=== PATIENT | male | born 1940 | race Caucasian/White ===

== ENCOUNTER 2019-03-01 11:18 | Emergency (ER) | payer OTHER ==
[~2019-03-01] VITALS: Ht 172.7 cm; Wt 95.3 kg
[2019-03-01 11:24] VITALS: Ht 172.7 cm; Wt 95.3 kg
[2019-03-01 13:42] VITALS: BP 138/71
== END 2019-03-01 13:42 | disposition home or self-care (01) ==
LOC: ED 11:18
DX: J40 Bronchitis, not specified as acute or chronic (principal); I10 Essential (primary) hypertension; Z98.890 Other specified postprocedural states

== ENCOUNTER 2019-03-04 19:42 | Inpatient (IN) | payer OTHER ==
[~2019-03-04] VITALS: Ht 180.3 cm; Wt 98.0 kg
--- NOTE | 2019-03-04 19:49 | NUR ---
NO ANS IN LOBBY
--- NOTE | 2019-03-04 20:21 | NUR ---
PATIENT PRESENTED BACK TO THE ED WITH WORSENING COUGH. PATIENT WAS HERE ON 03/01/19 AND WAS DX WITH BRONCHITUS. PATIENT STATES HE IS HAVING A HARD TIME SLEEPING BECAUSE HE KEEPS COUGHING UP YELLOW PHLEGM. CRACKLES NOTED IN UPPER AND LOWER LOBES BILATERALLY, PLACED PATIENT ON ALL MONITORS PER MD ORDERS. WILL CONTINUE TO MONITOR.
--- NOTE | 2019-03-04 20:49 | NUR ---
ADVISED PATIENT I NEEDED URINE SAMPLE. PATIENT VERBALIZED UNDERSTANDING.
[2019-03-04 20:57] LABS: BASOPHIL % 0.7 % (0-2); PLATELET COUNT 220 x10^3mcL (130-400)
[2019-03-04 21:11] LABS: ALBUMIN 3.5 g/dL (3.4-5.0); ALKALINE PHOSPHATASE 79 U/L (46-116); ALT/SGPT 24 U/L (16-63); AST/SGOT 19 U/L (15-37); BILIRUBIN TOTAL 0.37 mg/dL (0.20-1.00); CHLORIDE SERUM 105 mmol/L (98-107); CREATININE SERUM 1.3 mg/dL (0.7-1.3); SODIUM SERUM 140 mmol/L (136-145); TOTAL PROTEIN, SERUM 7.7 g/dL (6.4-8.2)
[2019-03-04 21:19] LABS: C REACTIVE PROTEIN 9.5 mg/dL (<=0.9); GLUCOSE SERUM 89 mg/dL (74-106)
[2019-03-04 21:23] LABS: RED CELL DISTRIBUTION WIDTH 15.5 % (11.5-14.5)
--- NOTE | 2019-03-04 21:32 | NUR ---
INFLUENZA A/B SENT TO LAB/
[2019-03-04 21:35] LABS: FREE T4 1.04 ng/dL (0.76-1.46); FREE THYROXINE INDEX 2.6 ug/dL (1.4-4.5); T4(THYROXINE) 7.3 ug/dL (4.7-13.3)
[2019-03-04 21:46] LABS: UA SPECIFIC GRAVITY 1.025 (1.005-1.035); microscopic required? YES; urine erythrocyte NEGATIVE (NEGATIVE)
[2019-03-04 21:50] LABS: T3 TOTAL 1.25 ng/mL
[2019-03-04 22:05] LABS: ERYTHROCYTE SED RATE 28 mm/hr (0-20)
--- NOTE | 2019-03-04 22:56 | NUR ---
REPORT GIVEN TO KIRIT MONGE- TELE FOR FURTHER CARE OF PATIENT. PATIENT BEING TRANSFERRED TO 218A TELE.
--- NOTE | 2019-03-04 23:12 | NUR ---
RECEIVED PT FROM ED VIA [facility], CAME IN DUE TO SOB AND COUGH. AAOX4. DENIES HEADACHE/DIZZINESS. NO SOB NOTED, LUNG SOUNDS CTA. O2 SAT=95% ON 2LPM/NC. W/ PRODUCTIVE COUGH, ABLE TO EXPECTORATE YELLOW PHLEGM. DENIES CHEST PAIN/PRESSURE, SR ON THE MONITOR. DENIES ABDOMINAL DISCOMFORT. BOWEL SOUNDS ACTIVE. IV SITE PATENT AND INTACT. SIDE RAILS UPX2. ENDORSED TO PRIMARY NURSE SALEEM FOR CONTINUITY OF CARE
[2019-03-04 23:24] VITALS: BP 164/88
[2019-03-04 23:29] VITALS: Ht 180.3 cm; Wt 98.0 kg
--- NOTE | 2019-03-05 00:01 | NUR ---
RECIEVED PT FROM [facility] B[facility] IN NO ACUTE DISTRESS. AOX4. TELE #21, SR. BREATHING EVEN AND UNLABORED ON NC @ 2L. IV TO LAC, PATENT AND INFUSING. ORIENTED TO ROOM. BED IN LOWEST POSITION, 2 SIDE RAILS UP, CALL LIGHT IN REACH. INSTRUCTED TO CALL FOR ASSISTANCE.
[2019-03-05 01:40] VITALS: BP 164/88
[2019-03-05 05:26] VITALS: BP 105/60
--- NOTE | 2019-03-05 05:45 | NUR ---
NO ACUTE CHANGES. WILL ENDORSE TO ONCOMING RN.
--- NOTE | 2019-03-05 08:00 | NUR ---
RECEIVED PATIENT ALERT AND ORIENTED TIMES FOUR. PATIENT DENIES SOB AND THE LUNGS SOUND CLEAR AND ABDOMEN IS DISTENDED AND SOFT AND PATIENT HAS BEEN ON BEDREST AND TOELRATED WELL. HE ATE WELL THIS AM. PATIENT VITALS AT THIS TIME AT 97.5, 77, 18, 105/60, 95%. NOTED LABS ARE 10.3/30, AND BUN AT 33.0, GLUCOSE AT 175, AND THE LAST BLODO SUGAR AT 143. PATIENT HAS DIMINSIHED BREATH SOUNDS PATENI NANDA NO EDEMA AND PUSLES PALPABLE TO THE EXTREMTIES. VENKATESHT HAS COMPLAINTS OF DIZZINESS AND OFFERED AND GAVE THE ANTIVERT. WILL CONTINUE TO MONITOR INDICATED.
[2019-03-05 09:00] VITALS: BP 143/76
--- NOTE | 2019-03-05 10:00 | NUR ---
PATIENT HAD LOW PULSE ACCORDING TO THE RT WHO WAS TAKING THE PULSE OX AND NTOED. CHECKED THE PATIENT WHO IS ASYMTOMATIC AT THIS TIME AND THE APICAL AT 68 AT THIS TIME. PATIENT HAS BEEN 72 ON THE MONITOR. PATIENT HAS BEEN WITHOUT SHORTNESS OF BREATH OR PAIN AT THIS TIME. WILL CONTINUE TO MONTIOR INDICATED.
--- NOTE | 2019-03-05 11:30 | NUR ---
RECEIVED PATIENT ALERT AND ORIENTED TIMES FOUR. PATIENT DENIES SOB AND THE LUNGS SOUND CLEAR AND ABDOMEN IS DISTENDED AND SOFT AND PATIENT HAS BEEN ON BEDREST AND TOELRATED WELL. HE ATE WELL THIS AM. PATIENT VITALS AT THIS TIME AT 97.5, 77, 18, 105/60, 95%. NOTED LABS ARE 10.3/30, AND BUN AT 33.0, GLUCOSE AT 175, AND THE LAST BLODO SUGAR AT 143. PATIENT HAS DIMINSIHED BREATH SOUNDS PATENI NANDA NO EDEMA AND PUSLES PALPABLE TO THE EXTREMTIES. PATIENT IS RESTING QUIETLY AT THIS TIME. NO COUGH AT THIS ITME BUT HAD BEEN REPORTED THAT THE HAS YELLOW SPUTUM,AND WAS ABLE TO EXPECTORATE. =
[2019-03-05 13:40] VITALS: BP 146/75
[2019-03-05 17:30] VITALS: BP 153/69
--- NOTE | 2019-03-05 19:35 | NUR ---
RECIEVED PT IN BED WITH AT BEDSIDE, NO ACUTE RESPIRATORY DISTRESS AT THIS TIME, PT DENIES CHEST PAIN AT THIS TIME, PERIPHERAL PULSES PALPABLE, TRACE EDEMA PRESENT TO THE BLLE, LUNG SOUNDS SLIGHTLY SIMINISHED, RESPIRATIONS EVEN AND UNLABORED, BOWEL SOUNDS ACTIVE X4, ABD LARGE, ROUND, DENIES ABD PAIN AT THIS TIME, PT VOIDS FREELY, IV TO LAC, CDI, NO SIGNS OF REDNESS OR SWELLING, SAFETY PRECAUTIONS IN PLACE WILL CONTINUE TO MONITOR.
[2019-03-05 21:45] VITALS: BP 150/80
--- NOTE | 2019-03-06 00:10 | NUR ---
PT REQUESTED FOR SLEEPING PILL. AMBIEN 5 MG PO GIVEN.
--- NOTE | 2019-03-06 01:00 | NUR ---
RECEIVED PT FROM SIERRA RN, PT RESTING IN BED, NO ACUTE DISTRESS NOTED. RESP EVEN AND UNLABORED, PT ON RA. ALL COMFORT AND SAFETY MEASURES PROVIDED FOR, CALL LIGHT WITHIN REACH, BED IN LOWEST POSITION, WILL CONTINUE TO MONITOR.
--- NOTE | 2019-03-06 05:15 | NUR ---
PT RESTED IN INTERVALS DURING SHIFT, NO ACUTE CHANGES OCCURRING OVERNIGHT. PT C/O COUGH, WILL MEDICATE PER ORDER. IV SITE REMAINS PATENT TO LAC, NO REDNESS, SWELLING OR PAIN NOTED. ALL COMFORT AND SAFETY MEASURES PROVIDED FOR, CALL LIGHT WITHIN REACH, BED IN LOWEST POSITION, WILL CONTINUE TO MONITOR.
[2019-03-06 05:40] VITALS: BP 141/89
[2019-03-06 07:00] LABS: BASOPHIL % 0.5 % (0-2); PLATELET COUNT 205 x10^3mcL (130-400)
[2019-03-06 07:13] LABS: CALCIUM 9.1 mg/dL (8.5-10.1); CARBON DIOXIDE 26.7 mmol/L (21-32); CHLORIDE SERUM 106 mmol/L (98-107); GLUCOSE SERUM 110 mg/dL (74-106); POTASSIUM SERUM 3.6 mmol/L (3.5-5.1); SODIUM SERUM 141 mmol/L (136-145)
--- NOTE | 2019-03-06 07:15 | NUR ---
RECEIVED PT. IN BED A/A/O X3. NO SOB, NO N/V NOTED. PT. DENIES ANY PAIN AT THIS TIME. IV H/L NOTED TO L AC. BED IN LOW POS., CALL LIGHT WITHIN REACH. SIDE RAILS UP X3.
--- NOTE | 2019-03-06 09:50 | NUR ---
PT. IS BEING SEEN BY DR. DUTTON AT THIS TIME.
--- NOTE | 2019-03-06 10:00 | NUR ---
NEW IV SITE RESTARTED AT R AC WITH GAUGE #20 DUE TO INFILTRATION OF OLD IV SITE.
[2019-03-06 10:01] VITALS: BP 149/80
--- NOTE | 2019-03-06 12:30 | NUR ---
PT. IS BEING TAKEN TO CT SCAN DEPT.
--- NOTE | 2019-03-06 12:54 | NUR ---
PT. RETURNED TO ROOM FROM CT SCAN DEPT.
[2019-03-06 13:00] VITALS: BP 167/96
--- NOTE | 2019-03-06 15:33 | NUR ---
CALLED AND NOTIFIED DR. DUTTON ABOUT RESULTS OF [facility]. DR. DUTTON SAID HE WILL DISCHARGE THE PT. TODAY IF DR. LEVY SAYS OK FOR PT. TO GO HOME.
--- NOTE | 2019-03-06 17:09 | NUR ---
REMAINS IN STABLE CONDITION AT THIS TIME. WILL CONTINUE TO MONITOR.
[2019-03-06 17:56] VITALS: BP 145/82
--- NOTE | 2019-03-06 18:00 | NUR ---
PT. IS BEING SEEN BY DR. LEVY. DR. LEVY SAID OK TO DISCHARGE PT. HOME TONIGHT.
--- NOTE | 2019-03-06 18:30 | NUR ---
CALLED AND SPOKE WITH DR. DUTTON REGARDING " OK TO DISCHARGE PT. HOME TONIGHT" PER DR. LEVY. ORDER TO DISCHARGE PT. HOME RECEIVED FROM DR. DUTTON.
--- NOTE | 2019-03-06 19:10 | NUR ---
ENDORSED PT.'S CARE TO KEELEY CARMICHAEL RN. KEELEY MADE AWARE THAT DISCHARGE INSTRUCTIONS NEED TO BE GIVEN TO PT. PRIOR TO DISCHARGE WHEN HIS DAUGHTER ARRIVES. PT.'S COPY OF CD IMAGE WAS HANDED TO KEELEY TO BE GIVEN TO PT. UPON DISCHARGE. PT. STATED HIS DAUGHTER WILL COME TO PICK HIM UP AROUND 2030 TONIGHT.
--- NOTE | 2019-03-06 19:33 | NUR ---
RECEIVED PATIENT IN BED AWAKE AND ORIENTED WITH NO SIGN OF ACUTE RESPIRATORY DISTRESS. BREATHING EASY AND NONLABOR SATTING AT 98% RA. TELE#21 NSR ON MONITOR. IV TO LAC HEPLOCKED. FOR DISCHARGE TONIGHT,PATIENT WAITING FOR HER DAUGHTER FOR MOLD CAPPER. WILL CONTINUE TO MONITOR.
--- NOTE | 2019-03-06 20:38 | NUR ---
C/O HEADACHE TYLENOL 650MG PO GIVEN PRESCRIBED.WAITING FOR DAUGHTER FOR SANDER MACHINE.
--- NOTE | 2019-03-06 21:18 | NUR ---
DISCHARGE HOME AFTER DISCHARGE INSTRUCTION GIVEN AND SIGNED. IV DISCONTINUED AND TAPE. TO FOLLOW UP WITH PRIMARY MD. WENT HOME ACCOMPANIED BY .
== END 2019-03-06 21:21 | disposition home or self-care (01) | DRG 189 ==
LOC: ED 19:42 → DU 22:20
PROVIDERS: Specialist; ADMIT Internal Medicine
DX: J96.91 Respiratory failure, unspecified with hypoxia (principal); J20.9 Acute bronchitis, unspecified; I25.10 Atherosclerotic heart disease of native coronary artery without angina pectoris; I12.9 Hypertensive chronic kidney disease with stage 1 through stage 4 chronic kidney disease, or unspecified chronic kidney disease; N18.9 Chronic kidney disease, unspecified; M19.90 Unspecified osteoarthritis, unspecified site; E66.9 Obesity, unspecified; Z68.30 Body mass index [BMI] 30.0-30.9, adult
CPT/HCPCS: 36600; 83880; 84439; 87804; J0456; J1644; J1956; J7040; J7050; J7613; J7620; J7626; J7644; Q9967

== ENCOUNTER 2019-04-10 08:11 | Emergency (ER) | payer OTHER, MEDICAID ==
[~2019-04-10] VITALS: Ht 175.3 cm; Wt 86.6 kg
[2019-04-10 08:18] VITALS: BP 170/99; Ht 175.3 cm; Wt 86.6 kg
== END 2019-04-10 10:17 | disposition home or self-care (01) ==
LOC: ED 08:11
DX: J06.9 Acute upper respiratory infection, unspecified (principal); I10 Essential (primary) hypertension; Z98.890 Other specified postprocedural states
CPT/HCPCS: J7620; Q0092

== ENCOUNTER 2019-10-15 12:47 | Observation (INO) | payer OTHER, MEDICAID ==
[~2019-10-15] VITALS: Ht 170.2 cm; Wt 91.2 kg
[2019-10-15 12:57] VITALS: Ht 170.2 cm; Wt 91.2 kg
--- NOTE | 2019-10-15 13:00 | NUR ---
EKG IN PROGRESS.
[2019-10-15 13:42] LABS: BASOPHIL % 0.6 % (0-2); PLATELET COUNT 178 x10^3mcL (130-400)
[2019-10-15 13:46] LABS: RED CELL DISTRIBUTION WIDTH 16.2 % (11.5-14.5)
[2019-10-15 14:19] LABS: CALCIUM 9.4 mg/dL (8.5-10.1); CARBON DIOXIDE 31.5 mmol/L (21-32); CHLORIDE SERUM 105 mmol/L (98-107); CREATININE SERUM 1.3 mg/dL (0.7-1.3); GLUCOSE SERUM 93 mg/dL (74-106); POTASSIUM SERUM 4.6 mmol/L (3.5-5.1); SODIUM SERUM 143 mmol/L (136-145)
[2019-10-15 14:24] LABS: ALBUMIN 3.8 g/dL (3.4-5.0); ALKALINE PHOSPHATASE 78 U/L (46-116); ALT/SGPT 25 U/L (16-63); AST/SGOT 17 U/L (15-37); BILIRUBIN TOTAL 0.6 mg/dL (0.20-1.00); TOTAL PROTEIN, SERUM 7.7 g/dL (6.4-8.2)
--- NOTE | 2019-10-15 14:43 | NUR ---
PT MEDICATED PER MD ORDERS SEE EMAR. BREATHING TREATMENT IN PROGRESS
--- NOTE | 2019-10-15 14:50 | NUR ---
BREATHING TX COMPLETED.
--- NOTE | 2019-10-15 15:00 | NUR ---
PT PRESENTED AT ED C/O PAIN TO CHEST AND BACK. DENIED SOB OR COUGH. REPORTS PREVIOUSLY DIAGNOSED WITH PNEUMONIA/BRONCHITIS. LUNG SOUNDS CLEAR IN ALL LOBES AND NO RESPIRATORY DISTRESS NOTED. AAOX4. UPPER SORBIAN SPEAKING ONLY. PATIENT GOWNED AND IN POSITION OF COMFORT. WILL CONTINUE TO MONITOR.
[2019-10-15 15:48] LABS: microscopic required? NO
--- NOTE | 2019-10-15 16:00 | NUR ---
POC DISCUSSED WITH PT BY DR CLEMENS.
[2019-10-15 16:08] LABS: urine erythrocyte NEGATIVE (NEGATIVE)
[2019-10-15] MEDS ORDERED: ASPIRIN CHILDRE81 MG PO (16:30)
--- NOTE | 2019-10-15 17:30 | NUR ---
PTS LADY FRIEND AT BEDSIDE PT SITTING IN BED NO DISTRESS NO FURTHER ORDERS AT THIS TIME. WILL CONTINUE TO MONITOR
--- NOTE | 2019-10-15 19:27 | NUR ---
REPORT GIVEN TO JESSE IN TELE UNIT.
[2019-10-15 21:28] VITALS: BP 173/83
--- NOTE | 2019-10-15 21:41 | NUR ---
RECEIVED PT FROM ER, PT ADMIT FOR CHEST PAIN, PT IS A/O X4, VERBAL RESPONSIVE LUNG SOUND CLEAR BILATERAL, NO COUGH,NO SOB. PT IS ON TELE 19, SB. C/O MILD CHEST PAIN 2/10. BOWEL SOUND PRESENT ALL 4 QUADRANTS, NO DISTENTION, NO TENDER. PEDAL PUSLE PRESENT BOTH FEET, TRACE EDEMA BLE. IV AT RIGHT FA, NO LEAKING, NO INFILTRATION. ALL ADLS ASSIST, ALL NEED MET, CALL LIGHT IN REACH, WILL CONTINUE TO MONITOR.
--- NOTE | 2019-10-15 22:00 | NUR ---
PT RECIEVED FROM [facility]. PT RESTING IN BED AT THIS TIME. DENIES PAIN OR DISCOMFORT. BREATHIGN E/U ON RA. NO SIGNS OF ACUTE DISTRESS AT THIS TIME. BED AT LOWEST POSITION. CALL LIGHT WITHIN REACH. WILL CONTINUE TO MONITOR.
[2019-10-16 05:02] VITALS: BP 164/80
[2019-10-16 05:30] VITALS: BP 160/82
--- NOTE | 2019-10-16 06:04 | NUR ---
PT RESTING IN BED AT TIME. DENIES PAIN OR DISCOMFORT. PT BP CHECKED AGAIN AT THIS TIME 160/82. WILL ENDORSE TO DAY NURSE. NO SIGNS OF ACUTE DISTRESS AT THIS TIME. BED AT LOWEST POSITION. CALL LIGHT WITHIN REACH. WILL CONTINUE TO MONITOR.
[2019-10-16 06:56] LABS: CHOLESTEROL/HDL RATIO 2.9
--- NOTE | 2019-10-16 07:00 | NUR ---
RECEIVED REPORT FORM MONTSERRAT RN AT BEDSIDE, PT RESTING IN BED IN NO ACUTE DISTRESS
--- NOTE | 2019-10-16 07:10 | NUR ---
SEEN BY GUEST ROOM INSPECTOR SONIA, PER , PT WILL HAVE STRESS TEST AT APPROXIMATELY 1300, NPO AT BREAKFAST AND NO [place] 12HRS PRIOR TEST, PT MADE AWARE, CHARGE NURSE BRITTNEE MADE AWARE, CONTINUE TO MONITOR
--- NOTE | 2019-10-16 07:39 | NUR ---
PT RESTING IN BED, IN NO ACUTE DISTRESS, VERBAL, ABLE TO MAKE NEEDS KNOWN, STANDARD PRECAUTION, CARDIAC DIET, NPO THIS AM FOR UPCOMING EXAM, CALM AND COOPERATIVE AT THIS TIME, AXOX4, PERRLA, NO REDNESS/DRAINAGE, RESP EVEN, NO SOB/COUGH, RA, LUNGS CTA, CHEST RISE SYMMETRICALLY, TELE # 19, SB, HR-60 AT THIS TIME, DENIED CP/PALPITATION, DENIED WANG/DIZZINESS, DENIED PAIN/DISCOMFORT, ABD FLAT AND NON-TENDER TO TOUCH, BS ACTIVE, SKIN C/D/W, CAP REFILL <3S, PALP PUSLES, SEE SKIN ASSESSMENT, EQUAL HAND PROPELLER ENGINEER, IV PATENT AND FLUSHING WELL, DRESSING CDI, AMBULATORY, CONTINENT, LEAKING AT TIMES D/T PT REPORT, ALL NEEDS ADDRESSED AT THIS TIME, SAFETY PROTOCOL FOLLOWED, CONTINUE TO MONITOR
[2019-10-16 08:13] VITALS: BP 151/78
--- NOTE | 2019-10-16 08:58 | NUR ---
AM MEDs GIVEN PER MD ORDER VIA EMAR BY RN STUDENT NURSE, TOLERATED WELL, NO ASE NOTED AT THIS TIME, EDUCATED PT R/T MEDs, ASE AND MONITOR, VERBALLY UDNERSTANDING, ALL NEEDS ADDRESSED AT THIS TIME, SAFETY PROTOCOL FOLLOWED, CONTINUE TO MONITOR
--- NOTE | 2019-10-16 09:33 | NUR ---
PT SEEN BY JOSE JUAN BURNSO, F/U W/ TECHNICAL MAINTENANCE SPECIALIST ORDER AND STRESS TEST RESULT TODAY POC, PT MADE AWARE, CHARGE NURSE BRITTNEE MADE AWARE
[2019-10-16 11:45] VITALS: BP 134/80
--- NOTE | 2019-10-16 12:50 | NUR ---
PT LEFT FOR [place] STRESS TEST ON WC ASSISTED BY MEDICAL STAFF, IN NO ACUTE DISTRESS, IV PATENT AND FLUSHING WELL, DRESSING CDI, CONTINUE TO MONITOR WHEN PT BACK TO FLOOR
[2019-10-16 13:25] VITALS: BP 129/73
--- NOTE | 2019-10-16 15:09 | NUR ---
PT BACK FROM [facility] STRESS TEST, VERBAL, IN NO ACUTE DISTRESS, REPORTED NO PAIN/DISCOMFORT, REPORTED NO WANG/DIZZINESS, DENIED NO CP/PALPITATION AT THIS TIME, TELE RE-APPLIED, RESTIGN IN BED, ALL NEEDS ADDRESSED, SAFETY PROTOCOL FOLLOWED, CONTINUE TO MONITOR
--- NOTE | 2019-10-16 16:34 | NUR ---
CALLED TO AND RELAYED THE RESULTS OF THE [place] AND W/ ORDER TO D/C PATIENT AND CONTINUE HOME MEDS.
[2019-10-16 16:54] VITALS: BP 138/76
--- NOTE | 2019-10-16 17:26 | NUR ---
IV REMOVED, IV CATH TIP INTACT, NO ACTIVE BLEEDING NOTED, TELE REMOVED AND RETURNED TO [facility], PT RESTING IN BED IN NO ACUTE DISTERSS, PT CALLED FAMILY AND SAID FAMILY WILL P/U AT 1900, PT REQUEST RESULT OF STRESS TEST ON CD FOR F/U W/ PCP, CHARGE NURSE BRITTNEE MADE AWARE, PT RESTING IN BED IN NO ACUTE DISTRESS, EDUCATED PT R/T CONDITION, MED, ASE AND MONITOR, NALLELY GIL RN TRANSLATED INTO PORTUGUESE, NO FURTHER CONCERN NEEDED WHEN ASKED, ALL NEEDS ADDRESSED, PT RESTING IN BED
--- NOTE | 2019-10-16 17:30 | NUR ---
PT REFUSED TO SIGN DC PAPER, PT SAID FAMILY WAITING FOR PT IN LOBBY NOW INSTEAD OF AT 1900, PT WALKED OUT OF ROOM AND REFUSED TO BE ASSISTED BY NURSING STAFF TO [facility], DAUGHTER CALL AT CELL PHONE NUMBER BUT UNABLE REACH ON PHONE, UNABLE TO LEFT MESSAGE D/T VOICE MAIL BOX FULLED, CHARGE NURSE BRITTNEE MADE AWARE, DC PACKAGE KEPT AT NURSING STATION FOR F/U. PT WAS IN NO ACUTE DISTRESS WHILE LEAVING.
--- NOTE | 2019-10-17 07:34 | NUR ---
ECHOCARDIOGRAM NOT DONE-DISCHARGED
== END 2019-10-16 17:30 | disposition home or self-care (01) ==
LOC: ED 12:47 → DU 16:24 → EDBEDREQ 16:24 → DU 16:24
PROVIDERS: Emergency Medicine; ADMIT Internal Medicine Pulmonary Disease
DX: R07.89 Other chest pain (principal); I25.10 Atherosclerotic heart disease of native coronary artery without angina pectoris; Z23 Encounter for immunization
CPT/HCPCS: 82962; 90658; 90732; A9500; G0378; J1650; J1885; J2270; J2785

== ENCOUNTER 2020-09-26 13:56 | Emergency (ER) | payer OTHER, SELFPAY ==
[~2020-09-26] VITALS: Ht 175.3 cm; Wt 90.7 kg
[~2020-09-26 13:56] MED LIST: ASPIRIN CHILDRE81 MG PO
[2020-09-26 14:03] VITALS: Ht 175.3 cm; Wt 90.7 kg
[2020-09-26 14:40] VITALS: BP 175/77
== END 2020-09-26 14:40 | disposition home or self-care (01) ==
LOC: ED 13:56
DX: U07.1 COVID-19 (principal); I10 Essential (primary) hypertension; Z98.890 Other specified postprocedural states
CPT/HCPCS: U0003

== ENCOUNTER 2020-10-31 12:45 | Emergency (ER) | payer OTHER ==
[~2020-10-31] VITALS: Ht 172.7 cm; Wt 90.7 kg
[~2020-10-31 12:45] MED LIST changes: +COR3 PO; +DECADRON4 MG PO; +PRILOSEC OTC20 M1 PO; +TAMSULOSIN HCL0.4 MG PO; +VENTOLIN H0.09 MG/A1 INH; +ZES5 PO
[2020-10-31 13:24] VITALS: Ht 172.7 cm; Wt 90.7 kg
[2020-10-31 14:56] VITALS: BP 153/85
== END 2020-10-31 14:56 | disposition home or self-care (01) ==
LOC: ED 12:45
DX: I10 Essential (primary) hypertension (principal); Z20.828 Contact with and (suspected) exposure to other viral communicable diseases; Z98.890 Other specified postprocedural states
CPT/HCPCS: U0003